=== PATIENT | female | born 1940 | race Caucasian/White ===

== ENCOUNTER 2018-09-22 06:55 | Day surgery (SDC) | payer MEDICARE, OTHER ==
[2018-09-21 11:22] LABS: ANION GAP 12.9 mmol/L (8-16); CALCIUM 8.7 mg/dL (8.5-10.1); CARBON DIOXIDE 27.4 mmol/L (21.0-32.0); CREATININE - SERUM 1.4 mg/dL (0.6-1.3); POTASSIUM - SERUM 4.3 mmol/L (3.5-5.1)
[2018-09-21 11:26] LABS: HEMATOCRIT 40.4 % (36.0-48.0); HEMOGLOBIN 13.1 g/dL (12-16); MCH 27.8 pg (26.0-34.0); MCHC 32.4 g/dL (31.0-37.0); MCV 85.8 fL (80.0-100.0); MEAN PLATELET VOLUME 9.4 fL (7.4-10.4); RBC 4.71 10x6/uL (4.00-5.40); RDW 15.4 % (11.5-14.5); WBC 6.4 10x3/uL (4.8-10.8)
[~2018-09-22] VITALS: Ht 160 cm; Wt 95.7 kg
[~2018-09-22 06:55] MED LIST: CELEXA40 MG PO; LEVOTHYROXINE50 MCG PO; LOSARTAN-HCTZ 50-12. PO; MIRAPEX0.25 MG PO; MULTI-DAY VITAM1 TAB PO; NEXIUM20 MG PO; TEMAZEPAM30 MG PO
[2018-09-22 07:50] VITALS: BP 159/82; Ht 160 cm; Wt 95.7 kg
--- NOTE | 2018-09-22 10:18 | OP ---
PATIENT NAME: ROSA LEES MEDICAL RECORD: [id number] :38 LOCATION:D.OPS ADMISSION DATE: SURGEON: KENNETH FREEMAN MD DATE OF OPERATION: 09/22/2018 SURGEON: Kenneth Freeman MD ANESTHESIA: TIVA by Jason Mckeon CRNA DIAGNOSIS: Urethral stricture, interstitial cystitis. PROCEDURES: Urethral dilation to 24-Libyan, cystoscopy, hydrodistention and intravesical Rimso instillation. FINDINGS: Urethral stricture, dilated to 24-Libyan. Single ureteral orifices bilaterally with no bladder tumors. No graft erosion. Very inflamed bladder. BLOOD LOSS: None. CLINICAL HISTORY: This is a 78-year-old female, who previously had a pubovaginal sling in the 1970s for urinary stress incontinence. She has a chief complaint of urinary frequency every 30 minutes. She feels that she is not fully emptying her bladder. When we scanned her bladder postop, postvoid, in the office, she had a postvoid residual of 0 mL. She comes today for cystoscopy and urethral stricture dilation. SHE IS ALLERGIC TO LORCET. She was given Ancef 2 grams IV professional fee coder to the OR. DESCRIPTION OF PROCEDURE: The patient was given IV sedation. She was then placed in the dorsal lithotomy position. A 17-Libyan cystoscope could not be placed due to the urethral stricture. I therefore started with the 18-Libyan sound and dilated the urethra up to 24-Libyan. The 26-Libyan sound would not enter as it was way too tight and I did not wish to tear any tissues. We then introduced the 17-Libyan cystoscope and the findings are as outlined above. I then inflated the bladder to 500 mL of capacity and maintained a pressure of about 1 minute for hydrodistention. The bladder was then emptied through the scope sheath. The scope was then removed. We placed a 16-Libyan red rubber catheter into the bladder. Through the catheter, 50 mL of intravesical Rimso solution was instilled into the bladder. She will hold this solution in for 15 minutes and then void it out. She will be seen in the office next week for Rimso treatment #2. TRANSINT:[id number] Voice Confirmation ID: [id number] DOCUMENT ID: [id number] KENNETH FREEMAN MD at 1018 CC: [id number] DICTATION DATE: 09/22/18 0925 [place] PROGRAM COORDINATOR: 09/22/18 1004 [facility] [address] [place] [place] [address]
--- NOTE | 2018-09-22 12:30 | NUR ---
1115 DRESSED, AWAKE & ALERT. GIVEN DISCHARGE INFORMATION INCLUDING: MED REC, RTC APPT., [facility] D/C INSTRUCTIONS, & POST CYSTOSCOPY D/C INSTRUCTIONS. PT VOICED UNDERSTANDING. TO PRIVATE CAR PER WHEELCHAIR BY VOLUNTEER. HOME WITH ATIF HINOJOSA. Steve HUNT R.N.
== END 2018-09-22 11:15 | disposition home or self-care (01) ==
LOC: D.OPS 06:55 → D.PAN 08:45 → D.OPS 08:45 → D.PAN 09:00 → D.OPS 09:15
PROVIDERS: Anesthesiology
DX: N30.10 Interstitial cystitis (chronic) without hematuria (principal); N35.92 Unspecified urethral stricture, female